=== PATIENT | male | born 1980 | race Caucasian/White ===

== ENCOUNTER 2017-06-25 23:00 | Emergency (ER) | payer OTHER ==
[~2017-06-25] VITALS: Ht 190.5 cm; Wt 104.3 kg
[~2017-06-25 23:00] MED LIST: NORFLEX100 MG PO; ULTRAM 50MG TAB50 MG PO; WELLBUTRIN XL150 M1
[2017-06-25] MEDS ORDERED: COZAAR 25 MG TA25 M1 (23:07)
[2017-06-25] MEDS ORDERED: PROAIR HFA8.5 GM (23:07)
[2017-06-25] MEDS ORDERED: SIMVASTATIN40 MG (23:07)
[2017-06-25] MEDS ORDERED: SYMBICORT160 MCG/4. (23:08)
[2017-06-26] MEDS ORDERED: PREDNISONE50 MG PO (00:34)
[2017-06-26] MEDS ORDERED: HYDROCODONE-AP1 EAC6 PO (00:34)
[2017-06-26 00:50] VITALS: BP 137/89
--- NOTE | 2017-06-26 17:38 | EKG ---
[place] [address] ELECTROCARDIOGRAM REPORT Name: LIZETT ZUÑIGA [id number] Admission: 06/25/17 Attend Phys: Discharge: 06/26/17 Date of : 82 Report #: [id number] THIS REPORT FOR: //name// [facility] ED Test Date: 2017-06-25 Test Time: 23:04:08 Pat Name: LIZETT ZUÑIGA Department: Room: Gender: M Storage Manager: : 1980 Requested By: Palma Mazariegos Order Number: [id number] MD: Murali Brownlee Measurements Intervals [place] Rate: 90 P: 38 AK: 162 QRS: 2 QRSD: 96 T: 17 QT: 340 QTc: 416 Interpretive Statements Sinus rhythm No previous ECG available for comparison Electronically Signed On 06-26-2017 17:37:55 CLINICAL PHYSICIAN ASSISTANT by Murali Brownlee [email or web address] <ELECTRONICALLY SIGNED> By: Murali Brownlee MD, [facility] 06/26/17 1737 [id number] Murali Brownlee MD, FACC /EPI
== END 2017-06-26 00:50 | disposition home or self-care (01) ==
LOC: M.ERS 23:00
DX: R09.1 Pleurisy (principal); F32.9 Major depressive disorder, single episode, unspecified; Z98.890 Other specified postprocedural states; Z88.8 Allergy status to other drugs, medicaments and biological substances; F17.220 Nicotine dependence, chewing tobacco, uncomplicated

== ENCOUNTER → 2018-04-15 | Outpatient (CLI) | payer OTHER ==
[~2018-04-15] MED LIST changes: +COZAAR 25 MG TA25 M1; +HYDROCODONE-AP1 EAC6 PO; +PREDNISONE50 MG PO; +PROAIR HFA8.5 GM; +SIMVASTATIN40 MG; +SYMBICORT160 MCG/4.
== END ==
LOC: M.RAD 10:30
DX: M25.511 Pain in right shoulder (principal); G89.29 Other chronic pain

== ENCOUNTER → 2018-04-24 | Outpatient (CLI) | payer OTHER | LOC: M.MRI 14:14 | DX: M67.411 Ganglion, right shoulder (principal); M75.101 Unspecified rotator cuff tear or rupture of right shoulder, not specified as traumatic; M19.011 Primary osteoarthritis, right shoulder ==

== ENCOUNTER → 2019-01-08 | Outpatient (CLI) | payer OTHER | LOC: M.SLEEPLAB 21:00 | DX: G47.30 Sleep apnea, unspecified (principal); N44.8 Other noninflammatory disorders of the testis; I10 Essential (primary) hypertension; E78.00 Pure hypercholesterolemia, unspecified; F32.9 Major depressive disorder, single episode, unspecified ==

== ENCOUNTER 2019-06-03 22:20 | Emergency (ER) | payer OTHER ==
[~2019-06-03] VITALS: Ht 190.5 cm; Wt 108.9 kg
[2019-06-03 22:54] LABS: INFLUENZA A ANTIGEN Negative (Negative)
[2019-06-03 23:15] LABS: ABSOLUTE EOSINOPHILS 0.1 thou/uL (0.0-0.7); ABSOLUTE MONOCYTES 0.5 thou/uL (0.0-1.2); ABSOLUTE NEUTROPHILS 3.2 thou/uL (1.6-8.1); BASOPHILS 0.6 %; EOSINOPHILS 2.1 %; HEMATOCRIT 39.3 % (42.0-52.0); LYMPHOCYTES 20.9 %; MCH 30.9 pg (26.0-34.0); MCHC 35.5 g/dL (28.0-37.0); MCV 87.1 fL (80.0-100.0); MONOCYTES 10.1 %; MPV 8.1 fl. (7.2-11.1); NUCLEATED RBCS 0 /100WBC; PLATELET COUNT* 171 thou/uL (150-400); POLYS 66.3 %; RBC 4.52 mil/uL (4.50-6.00); RDW-CV 12.7 % (10.5-14.5); WBC 4.9 thou/uL (4.0-11.0)
[2019-06-03 23:18] LABS: CALCIUM 8.9 mg/dL (8.5-10.1); CREATININE 1.1 mg/dL (0.6-1.3)
[2019-06-03] MEDS ORDERED: PROAIR HFA8.5 GM INH (23:26)
[2019-06-03] MEDS ORDERED: TAMIFLU75 MG PO (23:26)
[2019-06-03 23:39] VITALS: BP 129/83
== END 2019-06-03 23:39 | disposition home or self-care (01) ==
LOC: M.ERS 22:20
PROVIDERS: Emergency Medicine
DX: J10.1 Influenza due to other identified influenza virus with other respiratory manifestations (principal); F32.9 Major depressive disorder, single episode, unspecified; L53.9 Erythematous condition, unspecified; Z88.8 Allergy status to other drugs, medicaments and biological substances

== ENCOUNTER → 2019-07-27 | Outpatient (CLI) | payer OTHER ==
[~2019-07-27] MED LIST changes: +PROAIR HFA8.5 GM INH; +TAMIFLU75 MG PO
== END ==
LOC: M.MRI 16:39
DX: S83.242A Other tear of medial meniscus, current injury, left knee, initial encounter (principal); M67.462 Ganglion, left knee; M71.22 Synovial cyst of popliteal space [Baker], left knee; M22.42 Chondromalacia patellae, left knee; X58.XXXA Exposure to other specified factors, initial encounter; Y93.89 Activity, other specified; Y92.89 Other specified places as the place of occurrence of the external cause; Y99.8 Other external cause status

== ENCOUNTER 2020-04-05 02:03 | Emergency (ER) | payer OTHER ==
[~2020-04-05] VITALS: Ht 190.5 cm; Wt 104.3 kg
[2020-04-05] MEDS ORDERED: SIMVASTATIN80 MG PO (02:09)
[2020-04-05 02:21] LABS: ABSOLUTE EOSINOPHILS 0.2 thou/uL (0.0-0.7); ABSOLUTE LYMPHOCYTES 2.2 thou/uL (0.8-5.3); ABSOLUTE MONOCYTES 1.2 thou/uL (0.0-1.2); ABSOLUTE NEUTROPHILS 9.4 thou/uL (1.6-8.1); BASOPHILS 0.3 %; EOSINOPHILS 1.3 %; HEMATOCRIT 40.6 % (42.0-52.0); MCH 30.7 pg (26.0-34.0); MCHC 34.3 g/dL (28.0-37.0); MCV 89.4 fL (80.0-100.0); MONOCYTES 9.4 %; MPV 7.8 fl. (7.2-11.1); NUCLEATED RBCS 0 /100WBC; PLATELET COUNT* 194 thou/uL (150-400); RBC 4.55 mil/uL (4.50-6.00); RDW-CV 12.9 % (10.5-14.5)
[2020-04-05 03:05] LABS: CALCIUM 9.2 mg/dL (8.5-10.1); CREATININE 1.8 mg/dL (0.6-1.3); POTASSIUM 3.7 mmol/L (3.5-5.1)
[2020-04-05 03:10] LABS: TOTAL BILIRUBIN 0.6 mg/dL (<0.1-1.0); TOTAL PROTEIN 7.5 g/dL (6.4-8.2)
[2020-04-05 04:19] LABS: URINE BILIRUBIN NEGATIVE (Negative); URINE BLOOD NEGATIVE (Negative); URINE CLARITY CLEAR; URINE COLOR YELLOW; URINE GLUCOSE-RANDOM NEGATIVE (Negative); URINE KETONES NEGATIVE (Negative); URINE LEUKOCYTES-REFLEX NEGATIVE (Negative); URINE NITRITE-REFLEX NEGATIVE (Negative); URINE PROTEIN 1+ (Negative); URINE SPECIFIC GRAVITY 1.015 (1.005-1.030); URINE UROBILINOGEN 0.2 E.U./dl (0.2-1.0)
[2020-04-05] MEDS ORDERED: CIPROFLOXACIN500 M1 PO (04:36)
[2020-04-05] MEDS ORDERED: NORCO 5-325 TA1 EAC2 PO (04:36)
[2020-04-05] MEDS ORDERED: FLOMAX0.4 MG PO (04:36)
[2020-04-05 04:55] VITALS: BP 129/89
== END 2020-04-05 04:59 | disposition home or self-care (01) ==
LOC: M.ERS 02:03
PROVIDERS: Family Medicine
DX: N20.0 Calculus of kidney (principal); I10 Essential (primary) hypertension; E78.00 Pure hypercholesterolemia, unspecified; F17.220 Nicotine dependence, chewing tobacco, uncomplicated; Z88.8 Allergy status to other drugs, medicaments and biological substances

== ENCOUNTER 2020-08-07 16:45 | Emergency (ER) | payer OTHER ==
[~2020-08-07] VITALS: Ht 190.5 cm; Wt 104.3 kg
[~2020-08-07 16:45] MED LIST changes: +CIPROFLOXACIN500 M1 PO; +FLOMAX0.4 MG PO; +NORCO 5-325 TA1 EAC2 PO; +SIMVASTATIN80 MG PO
[2020-08-07] MEDS ORDERED: ZYRTEC10 M5 PO (16:58)
[2020-08-07 17:22] LABS: ABSOLUTE EOSINOPHILS 0.2 thou/uL (0.0-0.7); ABSOLUTE LYMPHOCYTES 1.8 thou/uL (0.8-5.3); ABSOLUTE MONOCYTES 0.5 thou/uL (0.0-1.2); ABSOLUTE NEUTROPHILS 4.6 thou/uL (1.6-8.1); BASOPHILS 0.3 %; EOSINOPHILS 2.5 %; HEMATOCRIT 42.4 % (42.0-52.0); HEMOGLOBIN 14.3 gm/dL (14.0-18.0); LYMPHOCYTES 25.7 %; MCHC 33.8 g/dL (28.0-37.0); MCV 88.8 fL (80.0-100.0); MONOCYTES 7.2 %; MPV 8.2 fl. (7.2-11.1); NUCLEATED RBCS 0 /100WBC; PLATELET COUNT* 186 thou/uL (150-400); POLYS 64.3 %; RBC 4.78 mil/uL (4.50-6.00); RDW-CV 12.6 % (10.5-14.5); WBC 7.1 thou/uL (4.0-11.0)
[2020-08-07 17:34] LABS: CALCIUM 8.9 mg/dL (8.5-10.1); CREATININE 1.1 mg/dL (0.6-1.3); POTASSIUM 3.9 mmol/L (3.5-5.1)
[2020-08-07 17:39] LABS: ALBUMIN 4.2 g/dL (3.4-5.0); TOTAL BILIRUBIN 0.7 mg/dL (<0.1-1.0); TOTAL PROTEIN 7.6 g/dL (6.4-8.2)
[2020-08-07] MEDS ORDERED: BENTYL 10 MG CA10 MG PO (18:31)
[2020-08-07 18:52] VITALS: BP 145/89
== END 2020-08-07 18:50 | disposition home or self-care (01) ==
LOC: M.ERS 16:45
PROVIDERS: Nurse Practitioner Family
DX: R10.33 Periumbilical pain (principal); I10 Essential (primary) hypertension; E78.00 Pure hypercholesterolemia, unspecified; F17.220 Nicotine dependence, chewing tobacco, uncomplicated